=== PATIENT | male | born 1975 | race Caucasian/White ===

== ENCOUNTER 2016-12-13 09:43 | Emergency (ER) | payer BC, OTHER ==
[2016-12-13 10:03] VITALS: BP 135/86; PULSE 83; TEMP 97.9; BMI 27.4
--- NOTE | 2016-12-13 11:07 | PDOC ---
History of Present Illness - General Chief Complaint: Injury Stated Complaint: RT HAND INJURY Time Seen by Provider: 12/13/16 10:38 History Source: Patient Exam Limitations: No Limitations - History of Present Illness Initial Comments: CHIEF COMPLAINT: 41 y/o afebrile male with laceration to left thumb while at work today. HISTORY OF PRESENT ILLNESS: The patient states a metal fan blade fell on his left thumb, causing a laceration. He did clean the wound at the job and admits he is UTD on tetanus. He denies numbness/tingling to affected finger, decreased ROM of affected finger. Vital signs on arrival are within normal limits. REVIEW OF SYSTEMS: GENERAL/CONSTITUTIONAL: No fever/chills. No weakness. No weight change. HEAD, EYES, EARS, NOSE AND THROAT: No change in vision. No ear pain or discharge. No sore throat. MUSCULOSKELETAL: No joint or muscle swelling or pain. No neck or back pain. SKIN: +laceration to left thumb NEUROLOGIC: No headache, vertigo, loss of consciousness, or loss of sensation. PHYSICAL EXAM: VITAL_SIGNS: within normal limits GENERAL_APPEARANCE: alert, cooperative, no obvious discomfort. MENTAL_STATUS: speech clear, oriented X 3, responds appropriately to questions. NEURO: motor intact and sensory intact in injured extremity. EXTREMITIES: 2cm laceration to middle left 1st digit with well approximated margins. Full flexion, extension and lateral movements of left first digit. No numbness/tingling in affected digit. SKIN: warm, dry, good color. Past History - Past Medical History Allergies/Adverse Reactions: Allergies Allergy/AdvReac Type Severity Reaction Status Date / Time No Known Allergies Allergy Verified 12/13/16 10:03 Home Medications: Ambulatory Orders Pantoprazole Sodium [Protonix] 40 mg PO DAILY #30 tablet. 04/15/16 Other medical history: Patient denies medical history - Immunization History Immunization Up to Date: Yes - Psycho/Social/Smoking Cessation Hx Anxiety: No Suicidal Ideation: No Smoking History: Never smoked Number of Cigarettes Smoked Daily: 0 Cigars Per Day: 0 Hx Alcohol Use: Yes (socially) Drug/Substance Use Hx: No Substance Use Type: Alcohol *Physical Exam - Vital Signs Last Vital Signs Temp Pulse Resp BP Pulse Ox 97.9 F 83 18 135/86 99 12/13/16 09:58 12/13/16 09:58 12/13/16 09:58 12/13/16 09:58 12/13/16 09:58 Procedures - Laceration/Wound Repair Left 1st digit Wound Length: to 2.5 cm Wound Explored: clean Wound's Depth, Shape: superficial, linear Irrigated w/ Saline: Yes Betadine Prep: Yes Anesthesia: 1% Lidocaine (Digital block) Amount of Anesthetic (ccs): 4 Wound Debrided: minimal Wound Repaired With: Sutures Suture Size/Type: 4:0 Number of Sutures: 4 Medical Decision Making - Medical Decision Making A/P: 41 y/o male with left 1st digit laceration. He is UTD on tetanus. Lac repaired without difficulty. Pt instructed to keep wound dry for 24 hours and then keep clean and covered. Pt instructed to return to the ER in 7-10 days for suture removal. The patient verbalizes understanding of all instructions, has no further questions and is awaiting discharge. *DC/Admit/Observation/Transfer Diagnosis at time of Disposition: Laceration - Discharge Dispostion Disposition: HOME Condition at time of disposition: Improved - Patient Instructions Printed Discharge Instructions: DI for Laceration Repair -- Finger Additional Instructions: Discharge Instructions: -Keep wound dry for 24 hours -After 24 hours keep wound clean and dry -Return to the ER with any worsening or concerning symptoms. - Post Discharge Activity Work/School Note: Back to Work
== END 2016-12-13 11:34 | disposition home or self-care (01) ==
LOC: JERFT 09:43
PROC: 0HQGXZZ Repair Left Hand Skin, External Approach (ICD-10-PCS; principal; 2016-12-13)
DX: S61.012A Laceration without foreign body of left thumb without damage to nail, initial encounter (principal); W26.8XXA Contact with other sharp object(s), not elsewhere classified, initial encounter; Y93.89 Activity, other specified; Y92.59 Other trade areas as the place of occurrence of the external cause; Y99.0 Civilian activity done for income or pay
CPT/HCPCS: 99281-25

== ENCOUNTER 2016-12-20 11:27 | Emergency (ER) | payer OTHER ==
[2016-12-20 11:38] VITALS: BP 140/80; PULSE 81; TEMP 97.9; BMI 27.4
--- NOTE | 2016-12-20 12:00 | PDOC ---
Suture Removal/Wound Check HPI - History of Present Illness Chief Complaint: Suture/Staple Removal(Here) Stated Complaint: SUTURES REMOVAL Time Seen by Provider: 12/20/16 11:39 History Source: Yes: Patient Exam Limitations: Yes: No Limitations Treated at: [facility] Date of Last ED visit: 12/13/16 - Previous ED Treatment Type of procedure performed on last visit: Yes: Laceration Repair Tetanus Immunization: Yes: Up to Date Antibiotics Prescribed: No Past History - Travel Traveled outside of the country in the last 30 days: No Close contact w/someone who was outside of country & ill: No - Past Medical History Allergies/Adverse Reactions: Allergies No Known Allergies Allergy (Verified 12/20/16 11:38) Home Medications: Ambulatory Orders Pantoprazole Sodium [Protonix] 40 mg PO DAILY #30 tablet. 04/15/16 - Immunization History Immunizations Up to Date: Yes - Social History Smoking Status: Never smoked Number of Ciarettes Per Day: 0 Cigars Per Day: 0 Suture Removal/Wound Check PE - Physical Exam Laceration/Wound Check Symptoms: reports: Improved. denies: Pain, Fever, Chills Location of Laceration/Wound: left: Finger (L first finger 4 simple interrupted stitches removed) *Review of Systems - Review of Systems Constitutional: No: Chills, Fever, Weakness Integumentary: No: Bruising, Change in Color, Flushing, Rash Neurological: No: Numbness, Weakness Medical Decision Making - Medical Decision Making 12/20/16 12:20 Wound is well approximated and healing well. Neurovascularly intact, VVS with no signs of infection. Removed 4 simple interrupted stitches. Steristrips placed over the wound and a finger splint placed on the finger to prevent bending of the finger. No signs of infection. Will discharge home at this time. Pt. understands all discharge instructions and all questions were answered. *DC/Admit/Observation/Transfer Diagnosis at time of Disposition: Visit for suture removal - Discharge Dispostion Disposition: HOME Condition at time of disposition: Stable Admit: No - Patient Instructions Printed Discharge Instructions: DI for Suture Removal Additional Instructions: You had your stitches removed today. Continue to keep the area clean and dry. Steristrips were placed over the wound. Let the steristrips fall off on their own. You were also placed in a finger splint. Wear it for the next week to ensure the wound heals well. Return to the ED if the wound re-opens, if you develops fevers, chills, foul smelling discharge or if there are any other changes in your symptoms. Print Language: BULGARIAN - Post Discharge Activity Work/School Note: Back to Work
== END 2016-12-20 12:50 | disposition home or self-care (01) ==
LOC: JERFT 11:27
DX: Z48.02 Encounter for removal of sutures (principal)
CPT/HCPCS: 99281-25